=== PATIENT | male | born 1955 | race Caucasian/White ===

== ENCOUNTER 2017-01-17 01:00 | Observation (INO) | payer BC, OTHER ==
[2017-01-16 22:58] LABS: CHLORIDE,CL 107 mEq/L (98-106); SODIUM,NA 142 mEq/L (136-145)
[2017-01-17] MEDS ORDERED: Lactated Ringers 1,000 ML IV SCH (09:45)
--- NOTE | 2017-01-20 16:30 | PCM.DCSUM1 ---
Discharge Summary - Hospital Course Free Text/Narrative:: Patient presented to the ER last night with sudden onset right flank pain. He was unable to get any relief at home. Had not ever experienced pain like this in the past. He had not noted any hematuria, no hesitancy with urination. Had been voiding without incident. History of back problems, muscle spasms but had never experienced anything like this in the past. Patient did have difficulty getting relief of his discomfort in the ED. Was given multiple meds with Dilaudid finally giving him some relief. He was found to have a 4mm stone on the right, 5 cm from the UV junction. Was started on IV fluids and Zofran as well as pain meds and admitted for pain control. - Discharge Data Discharge Date: 01/17/17 Discharge Disposition: Home, Self-Care 01 Condition: Fair - Patient Summary/Data Complications: none Hospital Course: Patient kept in overnight. Did get fair relief of his pain and slept much of the night with IV fluids infusing. Did not void again until this am. He was given Percocet for the pain and it maintained at a tolerable level so was felt he could be discharged home with pain meds, straining urine as we have noted him to yet pass the stone. Will push fluids. Start Flomax. Follow up with Dr. Jacobsen in one week. - Patient Instructions Diet: Usual Diet as Tolerated Activity: As Tolerated Notify Provider of: Fever, Increased Pain, Nausea and/or Vomiting - Discharge Plan Prescriptions/Med Rec: oxyCODONE HCl/Acetaminophen [Percocet 5-325 mg Tablet] 1 - 2 each PO Q6H PRN # 60 tablet PRN Reason: Pain Home Medications: Home Meds Multivitamin [Multiple Vitamins] 1 each PO DAILY 12/24/14 [History] Zolpidem [Ambien] 10 mg PO DAILY 01/16/17 [History] oxyCODONE HCl/Acetaminophen [Percocet 5-325 mg Tablet] 1 - 2 each PO Q6H PRN # 60 tablet 01/17/17 [Rx] Referrals: Wilbur Jacobsen MD [Primary Care Provider] - (See Dr. Jacobsen in one week for follow up) - Discharge Summary/Plan Comment DC Time >30 min.: No Discharge Summary/Plan Comment: Discharge home on Percocet, Flomax. Push fluids. Strain urine. Follow up with Dr. Jacobsen in one week. Avoid caffeine. - General Info Date of Service: 01/17/17 Admission Dx/Problem (Free Text: Right kidney stone Functional Status: Reports: Pain Controlled, Tolerating Diet, Ambulating - Review of Systems General: Denies: Fever, Weakness, Fatigue HEENT: Reports: No Symptoms Pulmonary: Reports: No Symptoms Cardiovascular: Reports: No Symptoms Gastrointestinal: Reports: Abdominal Pain, Nausea. Denies: Constipation, Diarrhea, Vomiting Genitourinary: Reports: Flank Pain. Denies: Dysuria, Frequency, Hematuria, Retention Musculoskeletal: Reports: No Symptoms Skin: Reports: No Symptoms Neurological: Reports: No Symptoms - Patient Data Weight - Most Recent: 223 lb Med Orders - Current: Current Medications Discontinued Medications Lactated Ringer's (Ringers, Lactated) 1,000 mls @ 200 mls/hr IV ASDIRECTED [facility] Last Admin: 01/17/17 09:49 Dose: 200 mls/hr - Exam General: Reports: Oriented, Sedated (sleepy from the pain meds this am) HEENT: Reports: Mucous Membr. Moist/[place] Neck: Reports: Supple Lungs: Reports: Clear to Auscultation, Normal Respiratory Effort Cardiovascular: Reports: Regular Rate, Regular Rhythm GI/Abdominal Exam: Normal Bowel Sounds, Soft, Tender (RLQ) Back Exam: Reports: Normal Inspection Skin: Reports: Warm, Dry Neurological: Reports: No New Focal Deficit *Q Meaningful Use (DIS) - VTE *Q VTE Criteria *Q: - Stroke *Q Stroke Criteria *Q: - AMI *Q AMI Criteria *Q:
== END 2017-01-17 12:55 | disposition home or self-care (01) ==
LOC: CC.ED 01:52 → CC.MS 01:53 → CC.ED 09:12 → INTOOBSV 09:13 → CC.MS 09:13 → UNDOADMOB 09:13 → UNDODISOB 12:55
PROVIDERS: ADMIT Physician Assistant Medical; ATTEND Family Medicine
DX: N20.0 Calculus of kidney (principal); Z79.899 Other long term (current) drug therapy; Z98.890 Other specified postprocedural states; F17.210 Nicotine dependence, cigarettes, uncomplicated
CPT/HCPCS: 36415; 80053; 81001; 82150; 85025; 86140; 96361; 96376; G0378; J1170; J1885; J2405; J3010; J7120; 74150; 96374; 96375; 99284; A9270-GY

== ENCOUNTER → 2017-08-30 | Day surgery (SDC) | payer BC ==
[~2017-08-30] MED LIST: Lactated Ringers 1,000 ML IV SCH; Propofol 200 MG/20 ML SDV IV ONE
[2017-08-30 09:12] VITALS: BP 122/71
--- NOTE | 2017-08-30 12:14 | OR ---
DATE OF OPERATION: 08/30/2017 PREOPERATIVE DIAGNOSIS: ALTERED BOWEL HABITS. POSTOPERATIVE DIAGNOSIS: ALTERED BOWEL HABITS. SURGEON: Wilbur Jacobsen MD PROCEDURE: FULL-LENGTH COLONOSCOPY WITH POLYP REMOVAL X1. 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 COMPLICATIONS: None. SPECIMEN: Rectal polyp. FINDINGS: 1. Full-length colonoscopy. 2. Small tubular adenoma, rectal vault. RECOMMENDATIONS: Followup colonoscopy in 5 years. INDICATIONS: The patient presented to my office with change in stool caliber and constipation. We elected to proceed with colonoscopy. DESCRIPTION OF PROCEDURE: The patient was prepped and draped, placed in the left lateral decubitus position. A lubricated Olympus colonoscope was inserted and easily advanced to the cecum. Direct visualization of the ileocecal valve and appendiceal orifice was accomplished. The bowel prep was adequate. Upon withdrawal of the scope, the cecum, ascending, and transverse colon were benign throughout the left colon including the descending and sigmoid area. There were no polyps, masses, ulcerations, or bleeding sites. No vascular abnormalities or signs of colitis. No signs of any significant diverticula. Rectosigmoid junction was unremarkable. In the rectal vault, the patient had a small flat tubular adenoma, approximately 4 mm in size. It was removed in its entirety with 2 cold forceps biopsies. Retroflexion of the scope in the rectum showed no anal lesions. The air was suctioned. Scope was removed without complication. ULISES/CED /[id number]
== END ==
LOC: CC.SDS 07:07
PROVIDERS: ATTEND Family Medicine
DX: D12.8 Benign neoplasm of rectum (principal); G89.29 Other chronic pain; M54.5 Low back pain; Z79.899 Other long term (current) drug therapy; F17.210 Nicotine dependence, cigarettes, uncomplicated
CPT/HCPCS: J2704; J7120

== ENCOUNTER → 2023-04-05 | Day surgery (SDC) | payer BC, MEDICARE ==
[~2023-04-05] MED LIST changes: +Ketamine 200 MG/20 ML MDV ONE; +Midazolam 1 MG/ML 2 ML SDV ONE; -Propofol 200 MG/20 ML SDV IV ONE; +Propofol 200 MG/20 ML SDV ONE; +fentaNYL 50 MCG/ML SDV ONE
[2023-04-05 11:49] VITALS: BP 111/72; PULSE 84
== END ==
LOC: CC.SDS 08:19
PROVIDERS: ATTEND Family Medicine
DX: Z12.11 Encounter for screening for malignant neoplasm of colon (principal); E78.00 Pure hypercholesterolemia, unspecified; N40.1 Benign prostatic hyperplasia with lower urinary tract symptoms; F41.9 Anxiety disorder, unspecified; E66.9 Obesity, unspecified; Z68.31 Body mass index [BMI] 31.0-31.9, adult; Z86.010 Personal history of colon polyps; F17.210 Nicotine dependence, cigarettes, uncomplicated; Z79.899 Other long term (current) drug therapy
CPT/HCPCS: J2250; J2704; J3010; J3490; J7120